=== PATIENT | male | born 1950 | race Caucasian/White ===

== ENCOUNTER → 2017-05-10 09:35 | Outpatient (CLI) | payer MEDICARE, BC ==
[2017-05-10 11:06] LABS: CREATININE - SERUM 1.4 mg/dL (0.6-1.3)
[2017-05-10 14:52] LABS: BASOPHILS 0.3 % (0-2); EOSINOPHILS 3.9 % (0-7); HEMATOCRIT 44.8 % (42.0-54.0); HEMOGLOBIN 14.9 g/dL (13.5-17.5); IMMATURE GRANULOCYTES 0.1 % (0-5); MCHC 33.3 g/dL (31.0-37.0); MCV 87.2 fL (80.0-100.0); MONOCYTES 13.7 % (2-11); PLATELET COUNT 193 10x3/uL (130-400); RBC 5.14 10x6/uL (4.20-6.10); RDW 14.9 % (11.5-14.5); WBC 6.9 10x3/uL (4.8-10.8)
[2017-05-10 15:00] LABS: ALBUMIN 3.8 g/dL (3.4-5.0); ANION GAP 16.3 mmol/L (8-16); BILIRUBIN - TOTAL 1.8 mg/dL (0.2-1.3); CALCIUM 9.2 mg/dL (8.5-10.1); POTASSIUM - SERUM 4.3 mmol/L (3.5-5.1); PROTEIN - SERUM 6.9 g/dL (6.4-8.2)
[2017-05-10 16:02] LABS: ERYTHROCYTE SEDIMENTATION RATE 6 mm/hr (0-20)
== END | disposition home or self-care (01) ==
LOC: D.CT 09:35
PROVIDERS: Internal Medicine Gastroenterology
DX: R93.3 Abnormal findings on diagnostic imaging of other parts of digestive tract (principal)

== ENCOUNTER 2017-07-26 05:13 | Outpatient (CLI) | payer MEDICARE, BC ==
[~2017-07-26] VITALS: Ht 188 cm; Wt 85.5 kg
[2017-07-26 06:34] LABS: BASOPHILS 0.2 % (0-2); EOSINOPHILS 2.9 % (0-7); HEMATOCRIT 41.5 % (42.0-54.0); HEMOGLOBIN 13.9 g/dL (13.5-17.5); IMMATURE GRANULOCYTES 0.2 % (0-5); LYMPHOCYTES 24.6 % (15-50); MCH 28.6 pg (26.0-34.0); MCHC 33.5 g/dL (31.0-37.0); MCV 85.4 fL (80.0-100.0); MEAN PLATELET VOLUME 10.1 fL (7.4-10.4); MONOCYTES 12.1 % (2-11); PLATELET COUNT 217 10x3/uL (130-400); RBC 4.86 10x6/uL (4.20-6.10); RDW 15.3 % (11.5-14.5); WBC 5.9 10x3/uL (4.8-10.8)
[2017-07-26 06:45] LABS: ANION GAP 16.4 mmol/L (8-16); CALCIUM 8.8 mg/dL (8.5-10.1); CARBON DIOXIDE 23.6 mmol/L (21.0-32.0); CREATININE - SERUM 1.4 mg/dL (0.6-1.3); INR 1.2 (0.85-1.17)
[2017-07-26 06:46] LABS: APTT 33.6 SECONDS (22.8-39.4)
[2017-07-26 07:01] LABS: ALBUMIN 3.3 g/dL (3.4-5.0); BILIRUBIN - DIRECT 0.76 mg/dL (0.00-0.30); BILIRUBIN - INDIRECT 0.6 mg/dL (0.00-1.00); BILIRUBIN - TOTAL 1.36 mg/dL (0.2-1.3); CHOL - HDL RATIO 4.8 ratio (2.3-4.9); LDL-HDL RATIO 3.5 ratio (1.5-3.5); PROTEIN - SERUM 7.3 g/dL (6.4-8.2)
[2017-07-26] MEDS ORDERED: HYDROCHLOROTH12.5 M1 PO (07:18)
[2017-07-26] MEDS ORDERED: OMEPRAZOLE40 MG PO (07:18)
[2017-07-26] MEDS ORDERED: PROBIOTIC1 EAC1 PO (07:19)
[2017-07-26] MEDS ORDERED: MUCINEX600 MG PO (07:20)
[2017-07-26 07:29] VITALS: BP 150/84; Ht 188 cm; Wt 85.5 kg
--- NOTE | 2017-07-26 10:26 | NUR ---
VS TAKEN AND PLACED ON CHART ON POST OP SHEET
--- NOTE | 2017-07-26 14:31 | NUR ---
1300 IV DC WITH CATHER TIP INTACT
[2017-07-27 07:29] LABS: FOLATE (FOLIC ACID) - SERUM 11.1 ng/mL (>3.0)
[2017-07-27 10:16] LABS: HAPTOGLOBIN 78 mg/dL (34-200); HEPATITIS C ANTIBODY <0.1 (0.0-0.9)
[2017-07-27 11:20] LABS: ANA REFLEX - DIRECT Negative (Negative)
[2017-07-28 15:22] LABS: MITOCHONDRIAL ANTIBODY 20.3 Units (0.0-20.0); SMOOTH MUSCLE ABS (ACTIN) 21 Units (0-19)
== END 2017-07-26 13:30 | disposition home or self-care (01) ==
LOC: D.OPS 05:13 → D.LAB 07:30 → D.OPS 07:30 → D.CT 08:00 → D.OPS 13:30
PROVIDERS: General Practice; Internal Medicine Gastroenterology
DX: K76.0 Fatty (change of) liver, not elsewhere classified (principal); R16.0 Hepatomegaly, not elsewhere classified; Z01.812 Encounter for preprocedural laboratory examination

== ENCOUNTER → 2019-08-15 08:50 | Outpatient (CLI) | payer MEDICARE, BC ==
[2017-07-26 07:29] VITALS: BMI 24.2
--- NOTE | ~2019-08-15 | EC ---
PATIENT:LANDON MAYORGA DATE OF SERVICE: 08/15/19 SEX: M MEDICAL RECORD: [id number] DATE OF : 50 LOCATION:D.FORMERLY [facility] AGE OF PATIENT: 69 ADMISSION DATE: 08/15/19 REFERRING PHYSICIAN: INTERPRETING PHYSICIAN: OLEG ROBISON MD ECHOCARDIOGRAM REPORT ECHO CHARGES 4 ECHO COMPLETE Date: 08/15/19 CLINICAL DIAGNOSIS: MITRAL REGURG HX OF HTN AND CARDIOMYOPATHY ECHOCARDIOGRAPHIC MEASUREMENTS (adult normal given) AC root (d.<3.7cm) 3.4 cm LV Septum d (<1.2 cm> 1.1 cm Valve Excursion 1.8 cm LV Septum (systole) 1.5 cm Left Atria (s.<4.0cm> 4.4 cm LVPW d(<1.2cm) 1.5 cm RV (d.<2.3cm) 3.9 cm LVPW (sytole) 2.0 cm LV diastole(<5.6CM) 5.7 cm MV E-F(>70mm/sec) cm LV systole 3.7 cm LVOT Diameter 1.9 cm MV exc.(>10mm) 1.7 cm Est.ejection fraction (50-75%) % DOPPLER: LVIT cm/sec A 134.0cm/sec E 94.0 cm/sec LA cm/sec RVSP 57 mmHg LVOT 127 cm/sec AOP1/2T m/s Asc. Ao 155 cm/sec RVOT 77 cm/sec RA cm/sec PA 92 cm/sec AV Gradient Peak 9.56 mmHg AV Mean 4.95 mmHg AV Area 2.5 cm MV Gradient Peak 23.58mmHg MV Mean 12.23mmHg MV Area cm COMMENTS: Acid Adjuster: 2 CECILIA HIGH Pillow Agent: 3 Dr. Razo TAPE# PACS Pericardial Effusion N DATE OF SERVICE: Adequate 2-D echo, color-flow and spectral Doppler, and M-mode. No LVH. LV internal dimensions upper limits of normal 5.7 cm. Wall motion is normal. EF is greater than or equal to 55%. Aortic valve is sclerosed without evidence of stenosis by Doppler interrogation. Mitral valve is thickened. Mitral annular calcification. Both leaflets peak gradient of 24 mmHg. Moderate to severe range. Severe MR is present as well. Right-sided chambers are grossly normal. Moderate TR. ECHOCARDIOGRAM REPORT [id number] LANDON MAYORGA TRANSINT:[id number] Voice Confirmation ID: [id number] DOCUMENT ID: [id number] OLEG ROBISON MD CC: [id number] DICTATION DATE: 08/20/191428 GRAIN THRESHER: 08/20/19 1756 DEP CLI 08/15/19 [place] [id number] [place] [id number]
[~2019-08-15 08:50] MED LIST: HYDROCHLOROTH12.5 M1 PO; MUCINEX600 MG PO; OMEPRAZOLE40 MG PO; PROBIOTIC1 EAC1 PO
== END | disposition home or self-care (01) ==
LOC: D.HCCECHO 08:50
PROVIDERS: ATTEND Internal Medicine Interventional Cardiology
DX: I34.0 Nonrheumatic mitral (valve) insufficiency (principal)